=== PATIENT | male | born 1970 | race Caucasian/White ===

== ENCOUNTER 2023-05-20 10:13 | Emergency (ER) | payer MEDICAID, SELFPAY ==
[2023-05-20] VITALS (11 sets, daily range): BP systolic 106–118; BP diastolic 76–91; PULSE 62–84; RESP 16; TEMP 36.2; O2SAT 92–97; BMI 25.0
--- NOTE | 2023-05-20 11:23 | ED.DIZZY ---
HPI - Dizziness General Chief Complaint: Dizziness/Vertigo Stated Complaint: Off balance and dizzy, had surgery Sunday Time Seen by Provider: 05/20/23 10:50 History of Present Illness HPI Narrative: This 53-year-old male comes in with family members reporting symptoms of vertigo and lightheadedness with being off balance. These symptoms occur when he gets up to ambulate. He had a rotator cuff surgery in [place] 5 days ago roughly. He was seen in [place] the next day because of some chest discomfort that started after recovering from surgery. He reports that they did EKG and checked his blood and clot cleared his heart. He does not have any prior cardiac history. Since then he has had these symptoms of vertigo, tinnitus bilaterally, feeling off balance and lightheaded when he moves from remaining still or especially when getting up. He did have 2 doses of a benzodiazepine when he was seen several days ago but none since then. He is taking hydrocodone 10 mg for pain but states that his shoulder pain is well managed. Prior to this he was in good health. He is not showing any sign of speech change or unilateral weakness. He does not have any sensory loss in his body or extremities. Family member state that he is not functioning normally in that he is off balance with vertigo and lightheadedness symptoms. He arrives here with normal vital signs. Does not have any prior history of cancer or pulmonary embolism. Related Data Home Medications Medication Instructions Recorded Confirmed clonazepam 0.5 mg tablet 1 mg PO BID 05/20/23 05/20/23 cyanocobalamin (vitamin B-12) 1,000 mcg IM 05/20/23 1,000 mcg/mL injection solution dextroamphetamine-amphetamine 20 tab PO 05/20/23 mg tablet hydrocodone 10 mg-acetaminophen tab PO 05/20/23 325 mg tablet methocarbamol 750 mg tablet PO 05/20/23 ondansetron HCl 4 mg tablet 4 mg PO Q8H PRN 05/20/23 05/20/23 Previous Rx's Medication Instructions Recorded meclizine 25 mg tablet 25 mg PO QID #20 tabs 05/20/23 Allergies Allergy/AdvReac Type Severity Reaction Status Date / Time acetaminophen [From Tylenol] Allergy Mild Hives Verified 05/20/23 10:35 aspirin Allergy Mild Hives Verified 05/20/23 10:35 bupropion [From Wellbutrin] Allergy Mild Hives Verified 05/20/23 10:35 sertraline [From Zoloft] Allergy Mild Hives Verified 05/20/23 10:35 Review of Systems Status of ROS: Reports: 10 or more systems reviewed and unremarkable except as noted in History and below Narrative: Constitutional: No fevers, no weight gain or loss. Eyes: No discharge. No vision changes. HENT: No congestion, no sore throat, no ear pain. Cardiovascular: No chest pain, no palpitations. Respiratory: No shortness of breath, no wheezes, no cough. Gastrointestinal: No abdominal pain, no vomiting, no diarrhea. Genitourinary: No dysuria, no hematuria. Musculoskeletal: Normal range of motion. Skin: No rashes, no pruritis. Neurological: No weakness, sensory change, speech change. He reports vertigo symptoms with movement, bilateral tinnitus, lightheadedness when arising. Endo/Heme/Allergies: No bruising or bleeding. No polydipsia. Pysch: no suicidality, no anxiety, no insomnia. All other systems reviewed and are negative. [facility] Social History Smoking Status: Unknown if ever smoked Exam Narrative: Exam Narrative: Constitutional: Well-developed, well-nourished, no acute distress. HEENT: Normocephalic, atraumatic. Neck: Normal range of motion. Nontender. Supple. Heart: Regular. No murmurs. Normal rate. Intact distal pulses. Lungs: Clear to auscultation. No chest discomfort. No wheezes, rhonchi, or rales. Abdomen: Normal bowel sounds. Nontender. No rebound tenderness. Genitalia: Deferred. Back: No midline tenderness. Normal range of motion. Extremities: Left arm is in a shoulder immobilizer status post rotator cuff surgery. Skin: Intact. No rash. Warm. No erythema or pallor. Neurologic: No altered sensation. No weakness. Alert and oriented. No facial asymmetry. Speech is normal. Tongue is midline. [id number] is normal. No pronator drift with the right arm tested only. He is able to raise each leg from the bed. Psychiatric: No suicidality. No anxiety or depression. No insomnia. Nursing notes and vitals signs are reviewed. Const: Vital Signs, click to edit/add: Vital Signs - 24 hr 05/20/23 10:24 05/20/23 11:50 05/20/23 12:00 Temperature 97.2 F L Pulse Rate 76 72 Pulse Rate [Right Pulse Oximeter] 75 Pulse Rate [orthos tatic lying Pulse Oximeter] Pulse Rate [orthos tatic sitting Puls e Oximeter] Pulse Rate [orthos tatic standing Pul se Oximeter] Respiratory Rate 16 Blood Pressure Blood Pressure [Ri ght Upper Arm] 118/76 Blood Pressure [or thostatic lying Ri ght Arm] Blood Pressure [or thostatic sitting Right Arm] Blood Pressure [or thostatic standing Right Arm] Pulse Oximetry 96 93 92 Oxygen Delivery Me thod Room Air Room Air 05/20/23 12:02 05/20/23 12:03 05/20/23 13:16 Temperature Pulse Rate 69 69 Pulse Rate [Right Pulse Oximeter] Pulse Rate [orthos tatic lying Pulse Oximeter] 73 Pulse Rate [orthos tatic sitting Puls e Oximeter] Pulse Rate [orthos tatic standing Pul se Oximeter] Respiratory Rate Blood Pressure 106/78 Blood Pressure [Ri ght Upper Arm] Blood Pressure [or thostatic lying Ri ght Arm] 108/76 Blood Pressure [or thostatic sitting Right Arm] Blood Pressure [or thostatic standing Right Arm] Pulse Oximetry 93 93 Oxygen Delivery Me thod Room Air 05/20/23 13:18 05/20/23 13:20 Temperature Pulse Rate Pulse Rate [Right Pulse Oximeter] Pulse Rate [orthos tatic lying Pulse Oximeter] Pulse Rate [orthos tatic sitting Puls e Oximeter] 73 Pulse Rate [orthos tatic standing Pul se Oximeter] 84 Respiratory Rate Blood Pressure Blood Pressure [Ri ght Upper Arm] Blood Pressure [or thostatic lying Ri ght Arm] Blood Pressure [or thostatic sitting Right Arm] 110/79 Blood Pressure [or thostatic standing Right Arm] 110/91 H Pulse Oximetry Oxygen Delivery Me thod Course Vital Signs Vital signs: Initial Vital Signs Temperature 97.2 F L 05/20/23 10:24 Temperature Source Temporal Artery Scan 05/20/23 10:24 Pulse Rate 75 05/20/23 10:24 Respiratory Rate 16 05/20/23 10:24 Blood Pressure 118/76 05/20/23 10:24 Blood Pressure Mean 90 05/20/23 10:24 Blood Pressure Position Sitting 05/20/23 10:24 Pulse Oximetry 96 05/20/23 10:24 Oxygen Delivery Method Room Air 05/20/23 10:24 Vital Signs Temperature 97.2 F L 05/20/23 10:24 Pulse Rate 75 05/20/23 10:24 Respiratory Rate 16 05/20/23 10:24 Blood Pressure 118/76 05/20/23 10:24 Pulse Oximetry 96 05/20/23 10:24 Oxygen Delivery Method Room Air 05/20/23 10:24 Temperature 97.2 F L 05/20/23 10:24 Pulse Rate 84 05/20/23 13:20 Respiratory Rate 16 05/20/23 10:24 Blood Pressure 110/91 H 05/20/23 13:20 Pulse Oximetry 93 05/20/23 12:03 Oxygen Delivery Method Room Air 05/20/23 12:03 MDM - Dizziness MDM Narrative Medical decision making narrative: This patient comes in reporting symptoms of dizziness which include feelings of lightheadedness at times, vertigo symptoms with bilateral tinnitus, and feeling off balance. These symptoms are minimal or absent when remaining still but reproduced when getting up. Family members are concerned that he might have a stroke or a pulmonary embolism. I did review scoring for revised [place] score. He does have a recent surgery but all other components are negative. His score is 2 for the revised [place] score which places him at low risk for pulmonary embolism or deep venous thrombosis. Additionally his neurologic exam is completely normal. He is not showing signs and symptoms of stroke. Orthostatic pressures are obtained and those also return with normal findings. The patient is able to ambulate. He did get up to the bathroom without assistance. This patient is able to return home to continue his current plans. I did provide a prescription for meclizine. Lab Data Labs: Lab Results 05/20/23 Range/Units 11:40 WBC 6.95 (4.50-11.00) K/uL RBC 5.00 (4.30-5.90) m/uL Hgb 15.4 (13.5-17.5) gm/dL Hct 46.6 (37.0-53.0) % MCV 93 (80-100) fL MCH 31 (26-34) pg MCHC 33 (32-36) gm/dL RDW Coeff of Lauren 13.1 (11.5-15.5) % Plt Count 266 (140-440) K/uL Neut % (Auto) 74.4 H (42.0-72.0) % Lymph % (Auto) 16.1 L (20-44) % Hopkins % (Auto) 6.8 (0.0-11.0) % Eos % (Auto) 2.2 (0.0-7.0) % Baso % (Auto) 0.4 (0.0-3.0) % Neut # (Auto) 5.20 (1.7-7.0) K/uL Lymph # (Auto) 1.10 (0.90-2.90) K/uL Hopkins # (Auto) 0.50 (0.00-0.90) K/UL Eos # (Auto) 0.15 (0.00-0.50) K/uL Baso # (Auto) 0.03 (0.00-0.30) K/uL Abs Immat Gran (auto) 0.01 (0.00-0.30) K/uL Imm/Tot Granulo (auto) 0.1 % Sodium 137 (135-149) mmol/L Potassium 4.1 (3.6-5.1) mmol/L Chloride 101 (96-114) mmol/L Carbon Dioxide 31 (20-32) mmol/L Anion Gap 5 L (7-15) mEq/L BUN 9 (7-30) mg/dL Creatinine 0.9 (0.5-1.5) mg/dL Estimated Creat Clear 85.66 Estimated GFR 102 ml/min Glucose 83 (60-115) mg/dL Calcium 9.4 (8.4-10.6) mg/dL Imaging Data CT scan - head: Radiologist's impression: No acute intracranial abnormality. Discharge Plan Discharge Clinical Impression: Acute vestibular neuronitis Patient Disposition: Home w/ Parent or Adult Condition: Stable Additional Instructions: Continue current plans. Take medication as needed and directed for vertigo symptoms. Follow-up with primary physician or return if worsening. Prescriptions: New meclizine 25 mg tablet 25 mg PO QID Qty: 20 0RF No Action ondansetron HCl 4 mg tablet 4 mg PO Q8H PRN clonazepam 0.5 mg tablet 1 mg PO BID hydrocodone-acetaminophen 10-325 mg tablet PO methocarbamol 750 mg tablet PO cyanocobalamin (vitamin B-12) 1,000 mcg/mL solution 1,000 mcg IM dextroamphetamine-amphetamine 20 mg tablet PO Follow Up/Referrals: Provider,Not a Local [Primary Care Provider] - Stand Alone Forms: [employer] [place] Info Instructions
[2023-05-20] MEDS: MECLIZINE HCL 25 MG TABLET PO (11:50)
[2023-05-20 11:53] LABS: Basophils Absolute Auto 0.03 K/uL (0.00-0.30); Basophils Percent Auto 0.4 % (0.0-3.0); Eosinophils Absolute Auto 0.15 K/uL (0.00-0.50); Eosinophils Percent Auto 2.2 % (0.0-7.0); Hematocrit 46.6 % (37.0-53.0); Hemoglobin* 15.4 gm/dL (13.5-17.5); Immature Granulocytes Abs Auto 0.01 K/uL (0.00-0.30); Immature Granulocytes Pct Auto 0.1 %; Lymphocytes Percent Auto 16.1 % (20-44); Mean Corpuscular HGB Conc 33 gm/dL (32-36); Mean Corpuscular Hemoglobin 31 pg (26-34); Mean Corpuscular Volume 93 fL (80-100); Monocytes Percent Auto 6.8 % (0.0-11.0); Neutrophils Percent Auto 74.4 % (42.0-72.0); Platelet Count* 266 K/uL (140-440); RDW Coefficient of Variation % 13.1 % (11.5-15.5); White Blood Count* 6.95 K/uL (4.50-11.00)
[2023-05-20 11:55] LABS: Slide Review Reflex No
--- NOTE | 2023-05-20 12:03 | CRLHL7_ITS ---
For Patients: As a result of the Century Cures Act, medical imaging exams and procedure reports are released immediately into your electronic medical record. You may view this report before your referring provider. If you have questions, please contact your health care provider. INDICATION: Vertigo. TECHNIQUE: Noncontrast CT of the head with multiplanar reformat in bone and soft tissue algorithms. COMPARISON: None available. FINDINGS: No acute intracranial hemorrhage. The vaz-white matter interface is preserved. The ventricles are normal in size. The skull base and calvarium are within normal limits. Orbits are unremarkable. Paranasal sinuses and mastoid air cells are predominantly clear. IMPRESSION: No acute intracranial abnormality. Please note that all CT scans at this facility use dose modulation, iterative reconstruction, and/or weight-based dosing when appropriate to reduce radiation dose to as low as reasonably achievable. Dictated by Norman Lomeli MD @ 05/20/2023 1:19:03 PM (Electronically Signed)
[2023-05-20 12:05] LABS: Chloride* 101 mmol/L (96-114); Potassium* 4.1 mmol/L (3.6-5.1); Sodium* 137 mmol/L (135-149)
[2023-05-20 12:08] LABS: Anion Gap 5 mEq/L (7-15); Blood Urea Nitrogen* 9 mg/dL (7-30); Carbon Dioxide* 31 mmol/L (20-32); Creatinine* 0.9 mg/dL (0.5-1.5); Est. Creatinine Clearance* 85.66; Estimated Glomerular Filt Rate 102 ml/min
[2023-05-20 12:09] LABS: Calcium* 9.4 mg/dL (8.4-10.6); Glucose* 83 mg/dL (60-115)
[2023-05-20 14:18] LABS: Vitamin B12* 689 pg/mL (243-894)
== END 2023-05-20 13:47 | disposition home or self-care (01) ==
PROVIDERS: Emergency Provider Emergency Medicine Emergency Medical Services
DX: H81.20 Vestibular neuronitis, unspecified ear (principal)
CPT/HCPCS: 36415; 70450; 80048; 82607; 85025; 99284; A9270

== ENCOUNTER 2024-08-22 13:39 | Outpatient (CLI) | payer MEDICAID, SELFPAY | END 2024-08-22 13:40 | disposition home or self-care (01) | PROVIDERS: PCP Family Medicine; Visit Provider Family Medicine | DX: M17.12 Unilateral primary osteoarthritis, left knee (principal); M25.562 Pain in left knee | CPT/HCPCS: 64454 ==

== ENCOUNTER 2024-09-09 12:46 | Outpatient (CLI) | payer MEDICAID, SELFPAY | END 2024-09-09 12:47 | disposition home or self-care (01) | PROVIDERS: PCP Family Medicine; Visit Provider Family Medicine | DX: M17.12 Unilateral primary osteoarthritis, left knee (principal); M25.562 Pain in left knee | CPT/HCPCS: 64624; J2250; J3010 ==